=== PATIENT | female | born 1975 | race African-American/Black ===

== ENCOUNTER 2018-07-24 10:57 | Inpatient (IN) ==
[2018-07-24 11:52] LABS: Basophils # 0.1 10*3/uL (0.0-0.2); Basophils % 0.5 % (0.0-0.8); Eosinophils # 0.6 10*3/uL (0.0-0.87); Eosinophils % 3.7 % (0.00-10.9); Hematocrit 27.4 VOL% (35.7-47.0); Hemoglobin 8.9 GM/DL (12.0-16.0); Immature Granulocytes % 0.3 %; Immature Granulocytes Absolute 0.05 #; Lymphocytes # 7.8 10*3/uL (1.4-4.0); Mean Corpuscular HGB Conc 32.5 GM/DL (32-36); Mean Corpuscular Hemoglobin 28 PG (27-34); Mean Corpuscular Volume 85.9 FL (87-102); Monocytes # 1.4 10*3/uL (0.11-0.8); NRBC # 0.72 10*3/uL; Neutrophils # 5.2 10*3/uL (1.4-7.4); Neutrophils % 34.5 % (38.7-73.9); Platelet Count 251 T/CUMM (130-400); Red Blood Count 3.19 MC/CUMM (3.8-5.5); Red Cell Distribution Width 18.4 % (9.3-17.3)
[2018-07-24 12:22] LABS: Anisocytosis 1+; Band Neutrophils 3 % (0-10); Eosinophils 3 % (0-10); Lymphocytes 51 % (20-55); Nucleated Red Blood Cells 3 (0-5); Platelet Estimate Normal; Segmented Neutrophils 32 % (50-85); Smudge Cells 1+; Total Cells Counted 100
[2018-07-24 12:23] LABS: Macrocytosis Slight; Polychromasia Slight
[2018-07-24 12:24] LABS: Target Cells 1+
[2018-07-24 12:25] LABS: Albumin 3.8 G/DL (3.4-5.0); Osmolality,Calculated 277.5 MOS/KG (273-304); Potassium 3.9 MMOL/L (3.5-5.1); Total Protein 6.4 G/DL (6.4-8.3)
[2018-07-24] MEDS ORDERED: KETOROLAC 30 MG/1 ML VIAL IV STA (12:36)
[2018-07-24] MEDS ORDERED: HYDROmorphone 2 MG/1 ML VIAL IV STA ×2 (12:36→15:25)
[2018-07-24] MEDS ORDERED: ACETAMINOPHEN 325 MG TABLET PO PRN (14:15)
[2018-07-24] MEDS ORDERED: ONDANSETRON 4 MG/2 ML VIAL IV PRN (14:15)
[2018-07-24] MEDS ORDERED: PROMETHAZINE 25 MG/1 ML VIAL IM PRN (14:15)
[2018-07-24] MEDS ORDERED: diphenhydrAMINE 50 MG/1 ML VIAL IV STA ×2 (14:43→16:51)
[2018-07-24] MEDS ORDERED: SODIUM CHLORIDE 0.9% 1,000 ML IV STA ×2 (15:25→15:33)
[2018-07-24 15:34] LABS: Apearance,Urine CLEAR (Clear); Bacteria,Urine Occasional /HPF (Few); Bilirubin,Urine Negative (Negative); Blood, Urine Negative (Negative); Glucose,Urine (UA) Negative (Negative); Ketones,Urine Negative (Negative); Mucus,Urine Occasional /LPF (Occasional); Nitrite,Urine Negative (Negative); Protein,Urine Negative; RBC,Urine 4 /HPF (0-4); Squamous Epithelial Cell,Urine Occasional /HPF (0-10); Urine Color Yellow (Yellow); Urine Specific Gravity 1.039 (1.001-1.035); Urine Urobilinogen < 2.0 EU/DL (0.2-1.0); WBC,Urine 3 /HPF (0-6)
[2018-07-24] MEDS: LEVOFLOXACIN INJ 750 MG in PREMIX 1 EACH IV SCH (16:41)
[2018-07-24] MEDS: PANTOPRAZOLE 40 MG TABLET PO SCH (16:41)
[2018-07-24] MEDS ORDERED: ONDANSETRON 4 MG TABLET PO PRN (17:40)
[2018-07-24] MEDS ORDERED: ACETAMINOPHEN 500 MG TABLET PO PRN (17:40)
[2018-07-24] MEDS ORDERED: PROMETHAZINE 25 MG TABLET PO PRN (17:40)
[2018-07-24] MEDS: SODIUM CHLORIDE 0.9% 1,000 ML IV SCH (18:41)
[2018-07-24] MEDS: APIXABAN 5 MG TABLET PO SCH (19:17)
[2018-07-24] MEDS: KETOROLAC 10 MG TABLET PO PRN (21:00)
[2018-07-24] MEDS: ALBUTEROL/IPRATROPIUM 3 ML NEB RESP TX SCH (21:19)
[2018-07-24] MEDS: oxyCODONE ER 10 MG TABLET PO SCH (22:32)
[2018-07-25] MEDS: ALBUTEROL/IPRATROPIUM 3 ML NEB RESP TX SCH ×4 (01:10→20:32)
[2018-07-25] MEDS: SODIUM CHLORIDE 0.9% 1,000 ML IV SCH ×3 (03:22→17:18)
[2018-07-25] MEDS: APIXABAN 5 MG TABLET PO SCH ×3 (03:23→20:05)
[2018-07-25 04:59] LABS: Basophils # 0.1 10*3/uL (0.0-0.2); Basophils % 0.4 % (0.0-0.8); Eosinophils # 0.7 10*3/uL (0.0-0.87); Eosinophils % 4.7 % (0.00-10.9); Hematocrit 23.3 VOL% (35.7-47.0); Hemoglobin 7.4 GM/DL (12.0-16.0); Immature Granulocytes % 0.3 %; Immature Granulocytes Absolute 0.04 #; Lymphocytes # 7.2 10*3/uL (1.4-4.0); Lymphocytes % 50.1 % (21.3-54.2); Mean Corpuscular HGB Conc 31.8 GM/DL (32-36); Mean Corpuscular Hemoglobin 28 PG (27-34); Mean Corpuscular Volume 86.6 FL (87-102); Mean Platelet Volume 10.7 FL (9.6-12.0); Monocytes # 1.5 10*3/uL (0.11-0.8); Monocytes % 10.7 % (1.7-12.7); NRBC # 0.82 10*3/uL; Neutrophils # 4.9 10*3/uL (1.4-7.4); Neutrophils % 33.8 % (38.7-73.9); Platelet Count 231 T/CUMM (130-400); Red Blood Count 2.69 MC/CUMM (3.8-5.5); Red Cell Distribution Width 18.4 % (9.3-17.3); White Blood Count 14.4 T/CUMM (4-12)
[2018-07-25 05:22] LABS: Albumin 3.2 G/DL (3.4-5.0); Bilirubin,Total 0.7 MG/DL (0.2-1.0); Calcium 8.4 MG/DL (8.5-10.1); Osmolality,Calculated 286.7 MOS/KG (273-304); Potassium 3.3 MMOL/L (3.5-5.1); Risk Ratio 3.82; Total Protein 5.7 G/DL (6.4-8.3)
[2018-07-25 05:31] LABS: Band Neutrophils 1 % (0-10); Eosinophils 3 % (0-10); Lymphocytes 46 % (20-55); Nucleated Red Blood Cells 7 (0-5); Segmented Neutrophils 45 % (50-85); Total Cells Counted 100
[2018-07-25 05:33] LABS: Anisocytosis 1+; Hypochromasia 1+
[2018-07-25 05:35] LABS: Acanthocytes 1+; Basophilic Stippling Few; Howell-Jolly Bodies 1+
[2018-07-25 05:36] LABS: Platelet Estimate Adequate
[2018-07-25] MEDS ORDERED: SODIUM CHLORIDE 0.9% 1,000 ML IV PRN (07:24)
[2018-07-25] MEDS: oxyCODONE ER 10 MG TABLET PO SCH ×2 (09:09→20:06)
[2018-07-25] MEDS: DEFERASIROX PO SCH (09:09)
[2018-07-25] MEDS: PANTOPRAZOLE 40 MG TABLET PO SCH (09:10)
[2018-07-25] MEDS: MULTIVITAMIN (CENTRUM) TABLET PO SCH (09:14)
[2018-07-25] MEDS ORDERED: POTASSIUM CHLORIDE 20 MEQ TABLET PO ONE (09:38)
[2018-07-25] MEDS: DULoxetine 30 MG CAPSULE PO SCH (10:06)
[2018-07-25 11:15] LABS: Hematocrit 22.7 VOL% (35.7-47.0); Hemoglobin 7.2 GM/DL (12.0-16.0)
[2018-07-25] MEDS: diphenhydrAMINE 50 MG/1 ML VIAL IV PRN ×2 (11:34→22:45)
[2018-07-25 11:53] LABS: Folate 7.8 NG/ML (5.4-24.0)
[2018-07-25 12:04] LABS: % Iron Saturation 35.6 % (18-50)
[2018-07-25] MEDS: HYDROmorphone 2 MG/1 ML VIAL IV PRN ×2 (12:08→20:01)
[2018-07-25] MEDS ORDERED: EPOETIN ALFA 10,000 UNIT/1 ML VIAL SUBCUT SCH (15:00)
[2018-07-25] MEDS ORDERED: TUBERCULIN SKIN TEST 0.1 ML SYRINGE INTRADERM ONE (15:16)
[2018-07-25] MEDS: LEVOFLOXACIN INJ 750 MG in PREMIX 1 EACH IV SCH ×2 (16:00→21:57)
[2018-07-25] MEDS ORDERED: HYDROmorphone 2 MG/1 ML VIAL IV ONE (22:11)
[2018-07-25] MEDS ORDERED: CLORAZEPATE 7.5 MG TABLET PO PRN (22:12)
[2018-07-26] MEDS: SODIUM CHLORIDE 0.9% 1,000 ML IV SCH ×3 (00:05→16:28)
[2018-07-26] MEDS: HYDROmorphone 2 MG/1 ML VIAL IV PRN ×3 (00:42→09:06)
[2018-07-26] MEDS: ALBUTEROL/IPRATROPIUM 3 ML NEB RESP TX SCH ×2 (01:19→08:15)
[2018-07-26] MEDS: diphenhydrAMINE 50 MG/1 ML VIAL IV PRN ×2 (04:50→11:08)
[2018-07-26 06:20] LABS: Basophils # 0.1 10*3/uL (0.0-0.2); Basophils % 0.4 % (0.0-0.8); Eosinophils # 0.7 10*3/uL (0.0-0.87); Eosinophils % 4.8 % (0.00-10.9); Hematocrit 30.2 VOL% (35.7-47.0); Hemoglobin 9.5 GM/DL (12.0-16.0); Immature Granulocytes % 0.2 %; Immature Granulocytes Absolute 0.03 #; Lymphocytes # 6.4 10*3/uL (1.4-4.0); Lymphocytes % 45.3 % (21.3-54.2); Mean Corpuscular HGB Conc 31.5 GM/DL (32-36); Mean Corpuscular Hemoglobin 28 PG (27-34); Mean Corpuscular Volume 87.3 FL (87-102); Mean Platelet Volume 10.3 FL (9.6-12.0); Monocytes # 1.7 10*3/uL (0.11-0.8); Monocytes % 11.9 % (1.7-12.7); NRBC # 0.75 10*3/uL; Neutrophils # 5.2 10*3/uL (1.4-7.4); Neutrophils % 37.4 % (38.7-73.9); Platelet Count 204 T/CUMM (130-400); Red Blood Count 3.46 MC/CUMM (3.8-5.5); Red Cell Distribution Width 17.2 % (9.3-17.3)
[2018-07-26 06:38] LABS: Calcium 8.9 MG/DL (8.5-10.1); Osmolality,Calculated 284.8 MOS/KG (273-304); Potassium 3.2 MMOL/L (3.5-5.1)
[2018-07-26 06:43] LABS: Albumin 3.3 G/DL (3.4-5.0); Bilirubin,Total 1.2 MG/DL (0.2-1.0); Calcium 8.6 MG/DL (8.5-10.1); Potassium 3.2 MMOL/L (3.5-5.1); Total Protein 5.7 G/DL (6.4-8.3)
[2018-07-26 06:46] LABS: Eosinophils 5 % (0-10); Hypochromasia Slight; Lymphocytes 41 % (20-55); Platelet Estimate Normal; Polychromasia Few; Segmented Neutrophils 49 % (50-85); Target Cells Few; Total Cells Counted 100
[2018-07-26] MEDS ORDERED: DOCUSATE SODIUM 100 MG CAPSULE PO PRN (07:51)
[2018-07-26] MEDS ORDERED: PROPOFOL 0 MG/0 ML BOTTLE IV ONE (08:38)
[2018-07-26] MEDS ORDERED: POLYETHYLENE GLYCOL POWDER 17 GM PACK PO SCH (09:00)
[2018-07-26] MEDS: oxyCODONE ER 10 MG TABLET PO SCH (09:08)
[2018-07-26] MEDS: MULTIVITAMIN (CENTRUM) TABLET PO SCH (09:08)
[2018-07-26] MEDS: APIXABAN 5 MG TABLET PO SCH (09:08)
[2018-07-26] MEDS: DEFERASIROX PO SCH (09:09)
[2018-07-26] MEDS: PANTOPRAZOLE 40 MG TABLET PO SCH (09:09)
[2018-07-26] MEDS: DULoxetine 30 MG CAPSULE PO SCH (09:09)
[2018-07-26] MEDS: KETOROLAC 10 MG TABLET PO PRN (09:20)
[2018-07-26] MEDS ORDERED: HYDROmorphone 2 MG/1 ML VIAL IV ONE (14:13)
[2018-07-26] MEDS ORDERED: POTASSIUM CHLORIDE 20 MEQ TABLET PO PRN (15:00)
[2018-07-26 16:11] VITALS: BP 102/80
[2018-07-27] MEDS ORDERED: ERGOCALCIFEROL 50,000 UNIT CAPSULE PO SCH (09:00)
[2018-07-28] MEDS ORDERED: EPOETIN ALFA 10,000 UNIT/1 ML VIAL SUBCUT SCH (09:00)
[2018-07-29 12:31] LABS: Mycoplasma pneumoniae Ab, IgG Negative (Negative); Mycoplasma pneumoniae Ab, IgM Negative (Negative)
[2018-07-29 22:40] LABS: Enterovirus PCR, P Negative (Negative)
[2018-07-30 13:19] LABS: Parvovirus B19 By Rapid PCR Negative; Source PLASMA
[2018-07-30 15:15] LABS: Adenovirus PCR Negative (Negative); Specimen Source URINE
[2018-07-30 15:43] LABS: HSV 1 PCR, Blood Negative (Negative); HSV 2 PCR, Blood Negative (Negative)
[2018-07-31] MEDS ORDERED: APIXABAN 5 MG TABLET PO SCH (09:00)
== END 2018-07-26 17:00 | disposition home or self-care (01) | DRG 811 ==
LOC: N.ED 10:57 → N.EDINP 10:57 → SUATTDRO 14:15 → N.EDINP 17:24 → N.TELEN 17:54 → SUATTDRO 07-25 14:19 → N.4E 07-25 17:33
PROVIDERS: ADMIT Internal Medicine; ATTEND Internal Medicine